=== PATIENT | female | born 1990 | race Caucasian/White ===

== ENCOUNTER 2020-11-25 17:33 | Emergency (ER) | payer SELFPAY ==
--- OUTSIDE RECORDS SUMMARY | 2020-11-25 17:36 | XMS REPORT | Continuity of Care Document ---
:1990 Author Organization [facility] t Address [address] [place] [address] Care Team Providers Name Role Phone Unavailable Unavailable Unavailable Problems Condition Condition Condition Status Onset Resolution Last Treating Co mments Source Name Details Category Date Date Treatment Clinician Date Hypothyroi Hypothyroi Problem Active 0 [facility] dism dism 01-15 da 00:00: Medical 00 Group Polycystic Polycystic Problem Active 0 [facility] ovaries Ovaries 01-15 da 00:00: Medical 00 Group Allergies, Adverse Reactions, Alerts Allergy Allergy Status Severity Reaction(s) Onset Inactive Treating Comm ents Source Name Type Date Date Clinician PENICILL Allergy Active [place] INS to da [facility] e Group Social History Smoking Status Start Date Stop Date Source Never Smoker [facility] Medications Ordered Filled Start Stop Current Ordering Indication Dosage Frequency Signature Comments Components Source Medication Medication Date Date Medication? Clinician (SIG) Name Name Euthyrox 50 Euthyrox 50 No Euthyrox [facility] mcg tablet mcg tablet 50 mcg d a TAKE 1 TAKE 1 tablet Medical TABLET BY TABLET BY TAKE 1 Maira up MOUTH ONCE MOUTH ONCE TABLET BY DAILY DAILY MOUTH ONCE DAILY Vital Signs Vital Name Observation Time Observation Value Comments Source BP Diastolic 2020-11-05 00:00:00 94 mm[Hg] [facility] Height 2020-11-05 00:00:00 67 [in_i] [facility] BMI (Body Mass 2020-11-05 00:00:00 36.3 kg/m2 [facility] BP Systolic 2020-11-05 00:00:00 147 mm[Hg] [facility] Body Weight 2020-11-05 00:00:00 232 [lb_av] [facility] BP Diastolic 2019-01-22 00:00:00 83 mm[Hg] [facility] Height 2019-01-22 00:00:00 67 [in_i] [facility] BMI (Body Mass 2019-01-22 00:00:00 33.4 [facility]2 [facility] BP Systolic 2019-01-22 00:00:00 120 mm[Hg] [facility] Body Weight 2019-01-22 00:00:00 213 [lb_av] [facility] BP Diastolic 2019-01-15 00:00:00 91 mm[Hg] [facility] Height 2019-01-15 00:00:00 67 [in_i] [facility] BMI (Body Mass 2019-01-15 00:00:00 33.5 kg/m2 [facility] Medical Index) Group BP Systolic 2019-01-15 00:00:00 149 mm[Hg] [facility] Body Weight 2019-01-15 00:00:00 214 [lb_av] [facility] Procedures Procedure Date / Time Performed Performing Clinician Sourc e MAMMO, screening, 2019-01-15 00:00:00 [facility] Plan of Care Planned Activity Planned Date Details Comments Source Diagnostic Test 2020-11-05 testosterone, [facility] Pending 00:00:00 total, serum [code Group = testosterone, total, serum] Diagnostic Test 2020-11-05 estradiol, serum [facility] Pending 00:00:00 [code = estradiol, Group serum] Diagnostic Test 2020-11-05 17-hydroxyprogeste [facility] Pending 00:00:00 chava, QN, serum Group [code = 17-hydroxyprogeste chava, QN, serum] Diagnostic Test 2020-11-05 T4, free, serum [facility] Pending 00:00:00 [code = T4, free, Group serum] Diagnostic Test 2020-11-05 lh + FSH, serum [facility] Pending 00:00:00 [code = lh + FSH, Group serum] Diagnostic Test 2020-11-05 progesterone, [facility] Pending 00:00:00 serum [code = Group progesterone, serum] Diagnostic Test 2020-11-05 prolactin, serum [facility] Pending 00:00:00 [code = prolactin, Group serum] Diagnostic Test 2020-11-05 TSH, serum or [facility] Pending 00:00:00 plasma [code = Group TSH, serum or plasma] Future Appointment 2020-12-06 Wu Patel 15:15:[address] [place] [address]; , [place] [address] Encounters Start End Encounter Admission Attending Care Care Encounter Source Date/Time Date/Time Type Type Clinicians Facility Department ID 2020-11-05 2020-11-05 Sherly [facility] [place] - [id number] M [facility] 00:00:00 00:00:00 [facility] MD: [address] [place] [address], [place] [address] , Ph. [phone] 2019-01-22 2019-01-22 Sherly [facility] [place] - [id number] M [facility] 00:00:00 00:00:00 [facility] MD: [address] [place] [address], [place] [address] , Ph. [phone] 2019-01-15 2019-01-15 Sherly [facility] [place] - [id number] M [facility] 00:00:00 00:00:00 [facility] cornelius MD: [address] [place] [address], [place] [address] , Ph. [phone] Results Test Description Test Time Test Comments Results Result Comments Source Human papilloma virus genotype [Identifier] in Unspecified 2 00:00:00 specimen by Probe and target amplification method Test Item Value Reference Range Interpretation Comme nts HPV type-detect 3.0 by next gen sequencing (reflex to HPV-16 ris k not detected assessment status) (test code = HPV type-detect 3.0 by next gen sequencing (reflex to HPV-16 risk assessment status)) [facility] [Identifier] in Unspecified specimen by Probe and target amplification [id number] 00:00:00 Test Item Value Reference Range Interpretation Comments HPV type-detect 3.0 by next gen not detected sequencing (reflex to HPV-16 risk assessment status) (test code = HPV type-detect 3.0 by next gen sequencing (reflex to HPV-16 risk assessment status)) [facility] HR HPV if [id number] 00:00:00 Test Item Value Reference Range Interpretation Comments liquid Pap test with reflex to HPV abnormal A type-detect 3.0 if ASCUS or greater (test code = liquid Pap test with reflex to HPV type-detect 3.0 if ASCUS or greater) [facility] + reflex to HR HPV if [id number] 00:00:00 Test Item Value Reference Range Interpretation Comments liquid Pap test with reflex to HPV abnormal A type-detect 3.0 if ASCUS or greater (test code = liquid Pap test with reflex to HPV type-detect 3.0 if ASCUS or greater) [facility]
[2020-11-25 18:30] LABS: Urine Blood 2+ (Negative); Urine Glucose Negative (Negative); Urine Protein Negative (Negative); Urine Specific Gravity 1.025 (1.005-1.030)
[2020-11-25 18:34] LABS: Absolute Lymphocytes (CBC) 2.2 K/uL (0.7-4.9); Basophils % 0.3 % (0-1.3); Hematocrit 38.1 % (36.0-45.0); Lymphocytes % 25.9 % (15.3-44.8); MPV 8.8 fL (7.6-11.3)
[2020-11-25 18:38] LABS: Urine Specific Gravity/Preg 1.025 (1.005-1.030)
[2020-11-25 19:13] LABS: Potassium 3.6 mmol/L (3.5-5.1)
--- NOTE | 2020-11-25 20:23 | EDPHYS ---
Physician Documentation [facility] Name: Tawanna Charles Age: 30 yrs Sex: Female : 1990 Arrival Date: 11/25/2020 Time: 17:34 Bed 2 Private MD: RISHI Physician Sandeep Osuna HPI: 11/26 00:10 This 30 yrs old Female presents to ER via Ambulatory with complaints of kb Vaginal Bleeding, Fatigue, Dizziness. 00:10 The patient presents with vaginal bleeding that is moderate. Onset: The kb symptoms/episode began/occurred 6 day(s) ago. Modifying factors: The symptoms are alleviated by nothing, the symptoms are aggravated by nothing. Associated signs and symptoms: Pertinent positives: vaginal bleeding, Pertinent negatives: constipation, cramping, diarrhea, dyspareunia, dysuria, fever, hematuria, nausea, urinary frequency, vaginal discharge, vomiting. Severity of symptoms: At their worst the symptoms were moderate, in the emergency department the symptoms are unchanged. The patient has experienced similar episodes in the past, a few times. The patient has been recently seen by a physician:. Patient reports recent change in control for PCOS. Has had vaginal bleeding for 6 days. Today had dizziness and fatigue, called boat and plant utility supervisor to report symptoms to ask for earlier follow-up date and was told to come to the ER.. Historical: - Allergies: 11/25 17:46 No Known Allergies; hb - Immunization history:: Adult Immunizations up to date. - Social history:: Smoking status: Patient denies any tobacco usage or history of. ROS: 11/26 00:10 Positive for vaginal bleeding. kb Constitutional: Negative for fever, chills, and weight loss. Constitutional: Positive for fatigue. Neuro: Positive for dizziness. All other systems are negative. Exam: 00:10 Constitutional: This is a well developed, well nourished patient who is awake, alert, kb and in no acute distress. Head/Face: Normocephalic, atraumatic. ENT: Moist Mucous membranes Respiratory: Respirations even and unlabored. No increased work of breathing, no retractions or nasal flaring. Abdomen/GI: Soft, non-tender. No distention Skin: Warm, dry with normal turgor. Normal color. MS/ Extremity: Pulses equal, no cyanosis. Neurovascular intact. Full, normal range of motion. Neuro: Awake and alert, GCS 15, oriented to person, place, time, and situation. Moves all extremities. Normal gait. Psych: Awake, alert, with orientation to person, place and time. Behavior, mood, and affect are within normal limits. Vital Signs: 11/25 17:43 BP 168 / 98; Pulse 65; Resp 16; Temp 99.2; Pulse Ox 98% on R/A; Pain 3/10; hb 20:12 BP 133 / 83 Supine; Pulse 86; Pulse Ox 98% ; ds4 20:15 BP 130 / 90 Sitting; Pulse 90; Pulse Ox 98% ; ds4 20:18 BP 140 / 106 Standing; Pulse 96; Pulse Ox 98% ; ds4 20:39 BP 128 / 91; Pulse 80; Resp 18; Temp 98.3; Pulse Ox 100% on R/A; em MDM: 17:46 Patient medically screened. kb 11/26 00:09 Data reviewed: vital signs, nurses notes. Data interpreted: Pulse oximetry: on room air kb is 100 %. Interpretation: normal. Counseling: I had a detailed discussion with the patient and/or guardian regarding: the historical points, exam findings, and any diagnostic results supporting the discharge/admit diagnosis, lab results, the need for outpatient follow up, an OB/Gyne specialist, to return to the emergency department if symptoms worsen or persist or if there are any questions or concerns that arise at home. 00:12 ED course: H\T\H normal. Patient will call boat and plant utility supervisor in the morning for follow-up. kb 11/25 17:47 Order name: CBC with Diff; Complete Time: 18:39 kb 11/25 17:47 Order name: Basic Metabolic Panel; Complete Time: 19:27 kb 11/25 17:47 Order name: IV Start; Complete Time: 18:01 kb 11/25 18:30 Order name: Urine Dipstick-Ancillary; Complete Time: 18:35 EDMS 11/25 18:31 Order name: Urine --Ancillary (enter results) em1 11/25 18:32 Order name: Urine --Ancillary; Complete Time: 18:39 EDMS 11/25 17:47 Order name: Orthostatics; Complete Time: 20:19 kb 11/25 17:47 Order name: Urine Dipstick-Ancillary (obtain specimen); Complete Time: 18:29 kb Administered Medications: No medications were administered Disposition: 09:08 Co-signature as Attending Physician, Sandeep Osuna MD I agree with the assessment and andrea plan of care. Disposition Summary: 11/25/20 20:22 Discharge Ordered Location: Home kb Condition: Stable kb Diagnosis - Abnormal uterine and vaginal bleeding, unspecified kb Followup: kb - With: Emergency Department - When: As needed - Reason: Worsening of condition Followup: kb - With: Private Physician - When: 2 - 3 days - Reason: Recheck today's complaints, Continuance of care, Re-evaluation by your physician Discharge Instructions: - Discharge Summary Sheet kb - Abnormal Uterine Bleeding, [id number] kb Forms: - Medication Reconciliation Form kb - Thank You Letter kb - Antibiotic Education kb - Prescription Opioid Use kb Signatures: Dispatcher [employer] EDMS Tawanna Lombardi, PINION SORTER-C PINION SORTER-Sandeep Nathan MD MD cha Baxter, Heather, RN RN
--- NOTE | 2020-11-25 20:23 | ER ---
Nurse's Notes [facility] Name: Tawanna Charles Age: 30 yrs Sex: Female : 1990 Arrival Date: 11/25/2020 Time: 17:34 Bed 2 Private MD: Diagnosis: Abnormal uterine and vaginal bleeding, unspecified Presentation: 11/25 17:43 Chief complaint: Severe vaginal bleeding, abdominal pain, fatigue, and dizziness x 6 hb days. Reports recent PCOS medication change. Coronavirus screen: At this time, the client does not indicate any symptoms associated with coronavirus-19. Ebola Screen: No symptoms or risks identified at this time. Initial Sepsis Screen: Does the patient meet any 2 criteria? No. Patient's initial sepsis screen is negative. Does the patient have a suspected source of infection? No. Patient's initial sepsis screen is negative. Risk Assessment: Do you want to hurt yourself or someone else? Patient reports no desire to harm self or others. Onset of symptoms was November 20, 2020. 17:43 Method Of Arrival: Ambulatory hb 17:43 Acuity: XU 3 hb Historical: - Allergies: 17:46 No Known Allergies; hb - Immunization history:: Adult Immunizations up to date. - Social history:: Smoking status: Patient denies any tobacco usage or history of. Screenin:35 Abuse screen: Denies threats or abuse. Nutritional screening: No deficits noted. em Tuberculosis screening: No symptoms or risk factors identified. Fall Risk None identified. Assessment: 20:30 General: Appears in no apparent distress. comfortable, Behavior is calm, cooperative, em appropriate for age. Pain: Complains of pain in abdomen. Neuro: Level of Consciousness is awake, alert, obeys commands, Oriented to person, place, time, situation, Reports dizziness. Cardiovascular: Capillary refill < 3 seconds Patient's skin is warm and dry. Respiratory: Airway is patent Respiratory effort is even, unlabored, Respiratory pattern is regular, symmetrical. GI: Abdomen is round obese. : Reports vaginal bleeding that is. Derm: Skin is intact, is healthy with good turgor, Skin is pink, warm \T\ dry. Musculoskeletal: Capillary refill < 3 seconds, Range of motion: intact in all extremities. 20:44 Reassessment: Patient and/or family updated on plan of care and expected duration. Pain ea level reassessed. Patient is alert, oriented x 3, equal unlabored respirations, skin warm/dry/pink. Discharge instruction given to patient verbalized the understanding of instruction. Pt left ED ambulatory accompanied by family, pt tolerating well. Vital Signs: 17:43 BP 168 / 98; Pulse 65; Resp 16; Temp 99.2; Pulse Ox 98% on R/A; Pain 3/10; hb 20:12 BP 133 / 83 Supine; Pulse 86; Pulse Ox 98% ; ds4 20:15 BP 130 / 90 Sitting; Pulse 90; Pulse Ox 98% ; ds4 20:18 BP 140 / 106 Standing; Pulse 96; Pulse Ox 98% ; ds4 20:39 BP 128 / 91; Pulse 80; Resp 18; Temp 98.3; Pulse Ox 100% on R/A; em ED Course: 17:34 Patient arrived in ED. ds1 17:46 Triage completed. hb 17:46 Tawanna Lombardi FNP-C is [facility]. kb 17:46 Sandeep Osuna MD is Attending Physician. kb 17:46 Arm band placed on. hb 17:56 Inserted saline lock: 22 gauge in left antecubital area, using aseptic technique. Blood hb collected. 18:01 Basic Metabolic Panel Sent. hb 18:01 CBC with Diff Sent. hb 20:17 Kasey Cade, RN is Primary Nurse. ea 20:35 Patient has correct armband on for positive identification. em 20:41 No provider procedures requiring assistance completed. IV discontinued, intact, em bleeding controlled, No redness/swelling at site. Pressure dressing applied. Administered Medications: No medications were administered Outcome: 20:22 Discharge ordered by MD. kb 20:41 Discharged to home ambulatory, with family. em 20:41 Condition: stable 20:41 Discharge instructions given to patient, Instructed on discharge instructions, follow up and referral plans. Demonstrated understanding of instructions, follow-up care. 20:45 Patient left the ED. ea Signatures: Tawanna Lombardi FNP-C FNP-Ckb Munoz, Edgar, RN RN em Chary Tran ds1 Abdi Granger ds4 Leana Morelos RN RN hb Antunez, Elena, RN RN ea Corrections: (The following items were deleted from the chart) 17:46 17:43 Pulse 65bpm; Resp 16bpm; Pulse Ox 98% RA; Temp 99.2F; Pain 3/10; hb hb
[2020-11-25 21:25] VITALS: BP 128/91; TEMP 98.3; O2SAT 100
== END 2020-11-25 20:45 | disposition home or self-care (01) ==
LOC: ER 17:33
DX: N93.9 Abnormal uterine and vaginal bleeding, unspecified (principal)
CPT/HCPCS: 36415; 80048; 81003; 81025; 85025; 99283

== ENCOUNTER 2022-07-06 18:36 | Emergency (ER) | payer SELFPAY ==
--- OUTSIDE RECORDS SUMMARY | 2022-07-06 18:38 | XMS REPORT | Continuity of Care Document ---
:[address] [facility] t Address [address] [place] [address] Care Team Providers Name Role Phone Linette Attending Clinician Unavailable Windy Attending Clinician Unavailable gricel Attending Clinician Unavailable Manuela_Adryan Admitting Clinician Unavailable Windy Admitting Clinician Unavailable gricel Admitting Clinician Unavailable Payers Payer Name Policy Type Policy Number Effective Date Expiration Date S ource Problems Condition Condition Condition Status Onset Resolution [...] PENICILL Allergy Active [facility] to [facility] Medical e Group Social History Smoking Status Start Date Stop Date Source Never Smoker [facility] Medications Ordered Filled Start [...] Source BP Diastolic 2020-11-05 00:00:00 94 mm[Hg] [facility] Height 2020-11-05 00:00:00 67 [in_i] [facility] BMI (Body Mass 2020-11-05 00:00:00 36.3 kg/m2 [facility] BP Systolic 2020-11-05 00:00:00 147 mm[Hg] [facility] Body Weight 2020-11-05 00:00:00 232 [lb_av] [facility] BP Diastolic 2019-01-22 00:00:00 83 mm[Hg] [facility] Height 2019-01-22 00:00:00 67 [in_i] [facility] BMI (Body Mass 2019-01-22 00:00:00 33.4 kg/m2 [facility] geological aide Medical Index) Group BP Systolic 2019-01-22 00:00:00 120 mm[Hg] [facility] Body Weight 2019-01-22 00:00:00 213 [lb_av] [facility] BP Diastolic 2019-01-15 00:00:00 91 mm[Hg] [facility] Height 2019-01-15 00:00:00 67 [in_i] [facility] BMI (Body Mass 2019-01-15 00:00:00 33.5 kg/m2 [facility] Medical Index) Group BP Systolic 2019-01-15 00:00:00 149 mm[Hg] [facility] Body Weight 2019-01-15 00:00:00 214 [lb_av] [facility] Procedures Procedure Date / Time Performed Performing Clinician Sourc e MAMMO, screening, 2019-01-15 00:00:00 [facility] Plan of Care Planned Activity Planned Date Details Comments Source Diagnostic Test 2020-11-05 testosterone, [facility] Pending 00:00:00 total, serum [code Group = testosterone, total, serum] Diagnostic Test 2020-11-05 estradiol, [facility] Pending 00:00:00 [code = estradiol, Group serum] Diagnostic Test 2020-11-05 [facility]e [facility] Pending 00:00:00 chava, QN, serum Group [code = 17-hydroxyprogeste chava, QN, serum] Diagnostic Test 2020-11-05 T4, free, serum [facility] Pending 00:00:00 [code = T4, free, Group serum] Diagnostic Test 2020-11-05 lh + FSH, serum [facility] Pending 00:00:00 [code = lh + FSH, Group serum] Diagnostic Test 2020-11-05 progesterone, [facility] Pending 00:00:00 serum [code = Group progesterone, serum] Diagnostic Test 2020-11-05 prolactin, serum [facility] Pending 00:00:00 [code = prolactin, Group serum] Diagnostic Test 2020-11-05 TSH, serum or [facility] Pending 00:00:00 plasma [code = Group TSH, serum or plasma] Encounters Start End Encounter Admission Attending Care Care Encounter Source Date/Time Date/Time Type Type Clinicians Facility Department ID 2021-02-22 2021-02-22 Outpatient Rut[facility]_L [id number] [facility] 02:43:00 02:43:00 [facility] 2020-11-26 2020-11-26 Outpatient [id number] [facility] 10:34:00 10:34:00 07[facility] 2020-11-22 2020-11-22 Outpatient [facility]L [facility] [id number] [place] 05:59:00 05:59:00 0719 [facility] 2020-11-05 2020-11-05 Outpatient [facility]L [facility] [id number] [facility] 12:44:00 12:44:00 0702 [facility] 2020-11-05 2020-11-05 Sherly [facility] [place] - [id number] M [facility] 00:00:00 00:00:00 Kamar Castro, Medical Med[facility] adryan VALERIO: [address] [facility] [address], [place] [address] , Ph. [phone] 2020-03-30 2020-03-30 Outpatient [facility]_L [facility] [id number] [place] 11:03:00 11:03:00 1124 [facility] 2020-03-24 2020-03-24 Outpatient [facility]_L [facility] [id number] [place] 02:28:00 02:28:00 1118 [facility] 2019-12-23 2019-12-23 Outpatient Windy [facility] MMG [id number] [facility] 04:23:00 04:23:00 0818 [facility] 2019-08-14 2019-08-14 Outpatient janetteastian_k [facility] [id number] [place] 09:51:00 09:51:00 0409 [facility] 2019-01-22 2019-01-22 Sherly [place] - [id number] M [facility] 00:00:00 00:00:00 Kamar Castro [facility] adryan MD: [address] [facility] [address] [place] [address] , Ph. [phone] 2019-01-15 2019-01-15 Sherly [facility] [place] - [id number] M [facility] 00:00:00 00:00:00 Kamar Castro [facility] ad[facility] MD: [address] [facility] [address] [place] [address] , Ph. [phone] Results Test Description Test Time Test Comments [...] sequencing (reflex to HPV-16 risk assessment status)) [facility] [Identifier] in Unspecified specimen by Probe and target amplification [id number] 00:00:00 Test Item Value Reference Range Interpretation Comments HPV type-detect 3.0 by next gen not detected sequencing (reflex to HPV-16 risk assessment status) (test code = HPV type-detect 3.0 by next gen sequencing (reflex to HPV-16 risk assessment status)) [facility] + reflex to HR HPV if [id number] 00:00:00 Test Item Value Reference Range Interpretation Comments liquid Pap test with reflex to HPV abnormal A type-detect 3.0 if ASCUS or greater (test code = liquid Pap test with reflex to HPV type-detect 3.0 if ASCUS or greater) [facility], LB + reflex to HR HPV if [id number] 00:00:00 Test Item Value Reference Range Interpretation Comments liquid Pap test with reflex to HPV abnormal A type-detect 3.0 if ASCUS or greater (test code = liquid Pap test with reflex to HPV type-detect 3.0 if ASCUS or greater) [facility]
[2022-07-06] MEDS ORDERED: NA CHLORIDE 0.9% 1,000 ML ONE (21:46)
[2022-07-06 22:08] LABS: Urine Blood Negative (Negative); Urine Glucose Negative (Negative); Urine Protein Negative (Negative)
[2022-07-06 22:10] LABS: Hematocrit 40.8 % (36.0-45.0); Lymphocytes % 31.3 % (15.3-44.8); MCV 85.1 fL (80-100); MPV 8.7 fL (7.6-11.3); RBC Red Blood Cell Count 4.79 M/uL (3.86-4.86)
[2022-07-06 22:22] LABS: Urine Bacteria <20 /HPF (<20); Urine Mucus Slight /HPF (None Seen); Urine RBC <5 /HPF (None Seen)
[2022-07-06 22:29] LABS: Albumin 4.1 g/dL (3.4-5.0); Bilirubin Total 0.4 mg/dL (0.2-1.0); Potassium 3.3 mmol/L (3.5-5.1); Protein, Total 8.4 g/dL (6.4-8.2)
--- NOTE | 2022-07-06 22:49 | EDPHYS ---
Physician Documentation [facility] Name: Tawanna Charles Age: 31 yrs Sex: Female : 1990 Arrival Date: 07/06/2022 Time: 18:40 Bed 11 Private MD: ED Physician Demario Cochran HPI: 07/06 22:50 This 31 yrs old Female presents to ER via Ambulatory with complaints of Urinary Problem.rt 22:50 Patient presents to the ED with urinary frequency, abdominal pain as well as a back rt pain starting about 6 days ago. Patient developed which describes as tachycardia today prompting him to the ED for further evaluation. She denies other acute complaints at this time. Symptoms are mild in severity, nonradiating, no other aggravating or elevating factors.. 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 - Social history:: Smoking status: Patient denies any tobacco usage or history of. Patient uses alcohol, only on a social basis. - Family history:: not pertinent. ROS: 22:50 Constitutional: Negative for fever, chills, and weight loss, Cardiovascular: Negative rt for chest pain, palpitations, and edema, Respiratory: Negative for shortness of breath, cough, wheezing, and pleuritic chest pain, Skin: Negative for injury, rash, and discoloration, Neuro: Negative for headache, weakness, numbness, tingling, and seizure, Psych: Negative for depression, anxiety, suicide ideation, homicidal ideation, and hallucinations. 22:50 Back: Positive for pain at rest, Negative for injury or acute deformity. 22:50 : Positive for urinary frequency, Negative for difficulty urinating. Exam: 22:50 Constitutional: This is a well developed, well nourished patient who is awake, alert, rt and in no acute distress. Neck: Trachea midline, no thyromegaly or masses palpated, and no cervical lymphadenopathy. Supple, full range of motion without nuchal rigidity, or vertebral point tenderness. No Meningismus. Chest/axilla: Normal chest wall appearance and motion. Nontender with no deformity. No lesions are appreciated. Cardiovascular: Regular rate and rhythm with a normal S1 and S2. No gallops, murmurs, or rubs. Normal PMI, no JVD. No pulse deficits. Respiratory: Lungs have equal breath sounds bilaterally, clear to auscultation and percussion. No rales, rhonchi or wheezes noted. No increased work of breathing, no retractions or nasal flaring. Abdomen/GI: Soft, non-tender, with normal bowel sounds. No distension or tympany. No guarding or rebound. No evidence of tenderness throughout. Back: No spinal tenderness. No costovertebral tenderness. Full range of motion. MS/ Extremity: Pulses equal, no cyanosis. Neurovascular intact. Full, normal range of motion. Neuro: Awake and alert, GCS 15, oriented to person, place, time, and situation. Cranial nerves II-XII grossly intact. Motor strength 5/5 in all extremities. Sensory grossly intact. Cerebellar exam normal. Normal gait. Psych: Awake, alert, with orientation to person, place and time. Behavior, mood, and affect are within normal limits. Vital Signs: 21:00 BP 154 / 100; Pulse 94; Resp 18; Temp 98.8(O); Pulse Ox 100% on R/A; Weight 110.22 kg; eh3 Height 5 ft. 7 in. (170.18 cm); Pain 5/10; 22:00 BP 188 / 119; Pulse 93; Resp 18; Pulse Ox 100% on R/A; eh3 23:00 BP 153 / 105; Pulse 96; Resp 18; Pulse Ox 99% on R/A; eh3 21:00 Body Mass Index 38.06 (110.22 kg, 170.18 cm) [facility] MDM: 20:02 Patient medically screened. rt 22:50 Differential diagnosis: Kidney stone, pyelonephritis, UTI, mechanical back pain. Data rt reviewed: vital signs, nurses notes, lab test result(s). Test considered but Not performed: CT: No focal abdominal tenderness, benign abdominal examination with no lab abnormalities, CT scan not indicated.. Counseling: I had a detailed discussion with the patient and/or guardian regarding: the historical points, exam findings, and any diagnostic results supporting the discharge/admit diagnosis, the presence of at least one elevated blood pressure reading (>120/80) during this emergency department visit, lab results, the need for outpatient follow up. 07/06 20:09 Order name: CBC with Diff rt 07/06 20:09 Order name: CMP rt 07/06 20:09 Order name: Lactate w/ 2H reflex if indic. rt 07/06 20:09 Order name: Urine Dipstick-Ancillary (obtain specimen); Complete Time: 22:14 rt 07/06 20:09 Order name: Urine Microscopic Only rt 07/06 20:10 Order name: Urine Culture rt 07/06 22:08 Order name: Urine Dipstick-Ancillary; Complete Time: 22:10 EDMS 07/06 22:13 Order name: Urine --Ancillary (enter results) wm 07/06 22:13 Order name: CBC with Automated Diff; Complete Time: 22:26 EDMS 07/06 22:22 Order name: Urine Microscopic Only; Complete Time: 22:26 EDMS 07/06 22:29 Order name: Comprehensive Metabolic Panel; Complete Time: 22:42 EDMS 07/06 22:29 Order name: Lactate w/ 2H reflex if indic.; Complete Time: 22:42 EDMS 07/06 23:02 Order name: Urine --Ancillary EDMS Administered Medications: 22:14 Drug: NS 0.9% 1000 ml Route: IV; Rate: 1 bolus; Site: right antecubital; eh3 23:00 Follow up: IV Status: Completed infusion; IV Intake: 900ml [facility] Disposition Summary: 07/06/22 22:49 Discharge Ordered Location: Home rt Problem: new rt Symptoms: have improved rt Condition: Stable rt Diagnosis - Frequency of micturition rt - Low back pain rt Followup: rt - With: Private Physician - When: 2 - 3 days - Reason: Discharge Instructions: - Discharge Summary Sheet rt - Acute Back Pain, Adult rt - Urinary Frequency, Adult rt Forms: - Medication Reconciliation Form rt - Thank You Letter rt - Antibiotic Education rt - Prescription Opioid Use rt Signatures: Dispatcher [employer] EDMS Nanci Mora RN RN 3 Demario Cochran MD MD rt Corrections: (The following items were deleted from the chart) 22:17 22:15 PSHx: Hysterectomy; eh3 eh3
--- NOTE | 2022-07-06 22:49 | ER ---
Nurse's Notes [facility] Name: Tawanna Charles Age: 31 yrs Sex: Female : 1990 Arrival Date: 07/06/2022 Time: 18:40 Bed 11 Private MD: Diagnosis: Frequency of micturition;Low back pain Presentation: 07/06 21:00 Chief complaint: Patient states: abdominal pain started 6 days ago, then back pain and eh3 dizziness last night, then increased heart rate, diarrhea, urinary frequency and urgency today. Also states it feels like bladder is not completely empty after voiding. Coronavirus screen: Vaccine status: Patient reports being unvaccinated. Ebola Screen: No symptoms or risks identified at this time. Initial Sepsis Screen: Does the patient meet any 2 criteria? No. Patient's initial sepsis screen is negative. Does the patient have a suspected source of infection? Yes: Dysuria/Frequency/Urgency/UTI. Risk Assessment: Do you want to hurt yourself or someone else? Patient reports no desire to harm self or others. Onset of symptoms was June 30, 2022. 21:00 Method Of Arrival: Ambulatory 3 21:00 Acuity: XU 3 eh3 Triage Assessment: 21:00 General: Appears in no apparent distress. comfortable, Behavior is calm, cooperative, eh3 appropriate for age. Pain: Complains of pain in back and abdomen. EENT: No signs and/or symptoms were reported regarding the EENT system. Neuro: Level of Consciousness is awake, alert, obeys commands, Oriented to person, place, time, situation. Neuro: Reports dizziness, headache. Cardiovascular: Capillary refill < 3 seconds Patient's skin is warm and dry. Cardiovascular: Reports palpitations. Respiratory: Airway is patent Respiratory effort is even, unlabored, Respiratory pattern is regular, symmetrical. GI: Abdomen is round non-distended, Reports lower abdominal pain, diarrhea. : Urine is clear, Reports urgency, urinary frequency. Derm: Skin is pink, warm \T\ dry. Musculoskeletal: Circulation, motion, and sensation intact. Range of motion: intact in all extremities. 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 - Social history:: Smoking status: Patient denies any tobacco usage or history of. Patient uses alcohol, only on a social basis. - Family history:: not pertinent. Screenin:19 [facility] ED Fall Risk Assessment (Adult) Score/Fall Risk Level 0 - 2 = Low Risk. Abuse eh3 screen: Denies threats or abuse. Denies injuries from another. Nutritional screening: No deficits noted. Tuberculosis screening: No symptoms or risk factors identified. Assessment: 21:00 Reassessment: No changes from previously documented assessment. See triage assessment. 3 22:00 Reassessment: Patient appears in no apparent distress at this time. Patient and/or 3 family updated on plan of care and expected duration. Pain level reassessed. Patient is alert, oriented x 3, equal unlabored respirations, skin warm/dry/pink. 23:00 Reassessment: Patient appears in no apparent distress at this time. Patient and/or 3 family updated on plan of care and expected duration. Pain level reassessed. Patient is alert, oriented x 3, equal unlabored respirations, skin warm/dry/pink. Vital Signs: 21:00 BP 154 / 100; Pulse 94; Resp 18; Temp 98.8(O); Pulse Ox 100% on R/A; Weight 110.22 kg; 3 Height 5 ft. 7 in. (170.18 cm); Pain 5/10; 22:00 BP 188 / 119; Pulse 93; Resp 18; Pulse Ox 100% on R/A; 3 23:00 BP 153 / 105; Pulse 96; Resp 18; Pulse Ox 99% on R/A; 3 21:00 Body Mass Index 38.06 (110.22 kg, 170.18 cm) [facility] ED Course: 18:40 Patient arrived in ED. mr 19:30 Demario Cochran MD is Attending Physician. rt 21:00 Patient has correct armband on for positive identification. Bed in low position. Call [facility] light in reach. Side rails up X2. Arm band placed on. Pulse ox on. NIBP on. Door closed. Noise minimized. Lights dimmed. Warm blanket given. Pillow given. 21:10 Nanci Mora, RN is Primary Nurse. [facility] 22:11 Triage completed. 3 22:19 Inserted saline lock: 20 gauge in right antecubital area, using aseptic technique. 3 Blood collected. 23:03 No provider procedures requiring assistance completed. IV discontinued, intact, 3 bleeding controlled, No redness/swelling at site. Pressure dressing applied. Administered Medications: 22:14 Drug: NS 0.9% 1000 ml Route: IV; Rate: 1 bolus; Site: right antecubital; [facility] 23:00 Follow up: IV Status: Completed infusion; IV Intake: 900ml [facility] Medication: 23:03 VIS not applicable for this client. [facility] Intake: 23:00 IV: 900ml; Total: 900ml. [facility] Outcome: 22:49 Discharge ordered by MD. rt 23:03 Discharged to home ambulatory. [facility] 23:03 Condition: stable 23:03 Discharge instructions given to patient, Instructed on discharge instructions, follow up and referral plans. Demonstrated understanding of instructions, follow-up care. 23:04 Patient left the ED. [facility] Signatures: Holder Makeda prather Nanci Mora RN RN [facility] Demario Cochran MD MD rt Corrections: (The following items were deleted from the chart) 22:17 22:15 PSHx: Hysterectomy; [place] [id number] 07/07 00:00 0302 22:08 Chief complaint: Patient states: abdominal pain started 6 days ago, then 3 back pain and dizziness last night, then increased heart rate, diarrhea, urinary frequency and urgency today. Also states it feels like bladder is not completely empty after voiding [facility] 07/07 00:02 0302 22:08 Coronavirus screen: Vaccine status: Patient reports being unvaccinated. [place] [address] 07/07 00: 03 22:08 Ebola Screen: No symptoms or risks identified at this time. [place] [address] 07/07 00:02 0302 22:08 Initial Sepsis Screen: Does the patient meet any 2 criteria? No. Patient's [facility] initial sepsis screen is negative. Does the patient have a suspected source of infection? Yes: Dysuria/Frequency/Urgency/UTI [facility] 07/07 00:02 0302 22:08 Risk Assessment: Do you want to hurt yourself or someone else? Patient [facility] reports no desire to harm self or others. [facility] 07/08 99:07/06 22:08 Onset of symptoms was July 06, 2022 [place] [address] 07/08 99:07/06 22:08 Chief complaint: Patient states: abdominal pain started 6 days ago, then [facility] back pain and dizziness last night, then increased heart rate, diarrhea, urinary frequency and urgency today. Also states it feels like bladder is not completely empty after voiding [facility] 07/08 99:07/06 22:08 Method Of Arrival: Ambulatory [place] [address] 07/08 99:07/06 22:08 BP 154 / 100; Pulse 94bpm; Resp 18bpm; Pulse Ox 100% RA; Temp 98.8F Oral; 3 110.22 kg; Height 5 ft. 7 in.; BMI: 38.0; Pain 5/10; [facility] 07/08 99:07/06 22:08 Acuity: XU 3 [place] [address] 07/08 99:07/06 22:15 General: Appears in no apparent distress. comfortable, Behavior is calm, [facility] cooperative, appropriate for age, [facility] 07/08 99:07/06 22:15 Pain: Complains of pain in back and abdomen [place] [address] 07/08 99:07/06 22:15 EENT: No signs and/or symptoms were reported regarding the EENT system. [place] [address] 07/08 99:07/06 22:15 Neuro: Level of Consciousness is awake, alert, obeys commands, Oriented to [facility] person, place, time, situation, [facility] 07/08 99:07/06 22:15 Cardiovascular: Capillary refill < 3 seconds Patient's skin is warm and [facility] dry. [facility] 07/08 99:07/06 22:15 Respiratory: Airway is patent Respiratory effort is even, unlabored, [facility] Respiratory pattern is regular, symmetrical, [facility] 07/08 99:07/06 22:15 GI: Abdomen is round non-distended, Reports lower abdominal pain, diarrhea, [place] [address] 07/08 99:07/06 22:15 : Urine is clear, Reports urgency, urinary frequency, [place] [address] 07/08 99:07/06 22:15 Cardiovascular: Reports palpitations, [place] [address] 07/07 00:03 03 22:15 Neuro: Reports dizziness, headache [place] [address] 07/07 00:03 07/06 22:15 Derm: Skin is pink, warm \T\ dry. [place] [address] 07/07 00:03 03 22:15 Musculoskeletal: Circulation, motion, and sensation intact. Range of [facility] motion: intact in all extremities, [facility] 07/07 00:07/06 23:30 IV Status: Completed infusion; IV Intake: 900ml [place] [address] 07/07 00:06 07/06 22:19 Reassessment: No changes from previously documented assessment. See triage [facility] assessment [facility] 07/07 00:07 07/06 23:03 LMP N/A - Hysterectomy [place] [address] 07/07 00:08 03 22:19 Patient has correct armband on for positive identification. Bed in low eh3 position. Call light in reach. Side rails up X2. [facility] 07/07 00:08 07/06 22:19 Pulse ox on. NIBP on. [place] [address] 07/07 00:08 07/06 22:19 Door closed. Noise minimized. Lights dimmed. Warm blanket given. Pillow 3 given. [facility] 07/07 00:08 07/06 23:03 Arm band placed on [place] [id number]
[2022-07-07 00:22] VITALS: BP 154/100; TEMP 98.8; O2SAT 100
== END 2022-07-06 23:04 | disposition home or self-care (01) ==
LOC: ER 18:36
DX: M54.50 Low back pain, unspecified (principal); R35.0 Frequency of micturition
CPT/HCPCS: 36415; 80053; 81003; 81015; 81025; 83605; 85025; 87086; 87088; 96360; 99284; J7030

== ENCOUNTER 2022-12-18 01:16 | Emergency (ER) | payer OTHER ==
--- OUTSIDE RECORDS SUMMARY | 2022-12-18 01:19 | XMS REPORT | Continuity of Care Document ---
:1990 Author Organization [facility] Address [address] [place] [address] [place] [id number] Care Team Providers Name Role Phone Tomek_T Attending Clinician Unavailable Manuela_Millicent Attending Clinician Unavailable Windy Attending Clinician Unavailable [email or web address]_tika Attending Clinician Unavailable Tomek_T Admitting Clinician Unavailable Rutledge_L Admitting Clinician Unavailable Windy Admitting Clinician Unavailable [email or web address]_k Admitting Clinician Unavailable Payers Payer Name Policy Type Policy Number Effective Date Expiration Date S ource Problems Condition Condition Condition Status Onset Resolution Last Treating Co mments Source Name Details Category Date Date Treatment Clinician Date Hypothyroi Hypothyroi Problem Active 20190 [facility] dism dism 01-15 da 00:00: Medical 00 Group Polycystic Polycystic Problem Active 0 [facility] ovaries Ovaries 01-15 da 00:00: Medical 00 Group Allergies, Adverse Reactions, Alerts Allergy Allergy Status Severity Reaction(s) Onset Inactive Treating Comm ents Source Name Type Date Date Clinician PENICILL Allergy Active [facility] to [facility]stanc [facility] Social History Smoking Status Start Date Stop Date Source Never Smoker [facility] Medications Ordered Filled Start [...] TABLET BY DAILY DAILY MOUTH ONCE DAILY Davidng BobbyuRyng No EluRyng [facility] [facility] 0.12 0.12 0.12 da mg-0.015 mg-0.015 mg-0.015 Med ical mg/24 hr mg/24 hr mg/24 hr Maira up vaginal vaginal vaginal ring INSERT ring INSERT ring 1 VAGINAL 1 VAGINAL INSERT 1 RING EVERY RING EVERY VAGINAL MONTH BY MONTH BY RING EVERY VAGINAL VAGINAL MONTH BY ROUTE ROUTE VAGINAL DIRECTED BY DIRECTED BY ROUTE PRESCRIBER PRESCRIBER DIRECTED BY PRESCRIBER levothyroxi levothyroxi No 1 Q1D levothyrox [place] ne 50 mcg ne 50 mcg ine 50 mcg da tablet Take tablet Take tablet Medical 1 tablet 1 tablet Take 1 Group every day every day tablet by oral by oral every day route for route for by oral 90 days. 90 days. route for 90 days. lisinopril lisinopril No 1 Q1D lisinopril [facility] 10 mg 10 mg 10 mg da tablet Take tablet Take tablet Medical 1 tablet 1 tablet Take 1 Group every day every day tablet by oral by oral every day route for route for by oral 90 days. 90 days. route for 90 days. Vital Signs Vital Name Observation Time Observation Value Comments Source BP Diastolic 2022-10-16 00:00:00 100 mm[Hg] [facility] BP Systolic 2022-10-16 00:00:00 169 mm[Hg] [facility] Body Weight 2022-10-16 00:00:00 3858 [facility] Diastolic 2020-11-05 00:00:00 94 mm[Hg] [facility] Height 2020-11-05 00:00:00 67 [in_i] [facility] BMI (Body Mass 2020-11-05 00:00:00 36.3 kg/m2 [facility]) Group BP Systolic 2020-11-05 00:00:00 147 mm[Hg] [facility] Body Weight 2020-11-05 00:00:00 232 [lb_av] [facility] BP Diastolic 2019-01-22 00:00:00 83 mm[Hg] [facility] Height 2019-01-22 00:00:00 67 [in_i] [facility] BMI (Body Mass 2019-01-22 00:00:00 33.4 kg/m2 [facility]) Group BP Systolic 2019-01-22 00:00:00 120 mm[Hg] [facility] Body Weight 2019-01-22 00:00:00 213 [lb_av] [facility] BP Diastolic 2019-01-15 00:00:00 91 [facility]Hg[facility] Height 2019-01-15 00:00:00 67 [in_i] [facility] BMI (Body Mass 2019-01-15 00:00:00 33.5 kg/m2 [facility]) Group BP Systolic 2019-01-15 00:00:00 149 mm[Hg] [facility] Body Weight 2019-01-15 00:00:00 214 [lb_av] [facility] Procedures Procedure Date / Time Performed Performing Clinician Sourc e MAMMO, screening, 2019-01-15 00:00:00 [facility] Plan of Care Planned Activity Planned Date Details Comments Source Diagnostic Test 2022-10-16 CMP, serum or [facility] Pending 00:00:00 plasma [code = Group CMP, serum or plasma] Diagnostic Test 2022-10-16 TSH, serum, reflex [facility] Pending 00:00:00 free T4 [code = Group TSH, serum, reflex free T4] Encounters Start End Encounter Admission Attending Care Care Encounter Source Date/Time Date/Time Type Type Clinicians Facility Department ID 2022-10-16 2022-10-16 [place] [id number] [facility] 00:00:00 00:00:00 [facility] 2022-10-16 2022-10-16 [facility] [place] - [id number] [facility] 00:00:00 00:00:00 Armand Shelton MD: [facility] [address], [place] [address] , Ph. 2022-10-13 2022-10-13 Outpatient Tomek_T [facility] [id number] [facility] 00:00:00 00:00:00 [id number] [facility] 2021-02-22 2021-02-22 Outpatient Rutledge_L [facility]G [id number] [place] 02:43:00 02:43:00 1019 [facility] 2020-11-26 2020-11-26 Outpatient Rutledge_L [facility]G [id number] [place] 10:34:00 10:34:00 0723 [facility] 2020-11-22 2020-11-22 Outpatient Rutledge_L [facility]G [id number] [place] 05:59:00 05:59:00 0719 [facility] 2020-11-05 2020-11-05 Outpatient Rutledge_L [facility]G [id number] [place] 12:44:00 12:44:00 0702 [facility] 2020-11-05 2020-11-05 [facility] [place] - [id number] [facility] 00:00:00 00:00:00 Magda Soto Medicrowena cornelius MD: [address] [place] [id number] , Ph. [phone] 2020-03-30 2020-03-30 Outpatient Rutledge_L [facility]G [id number] [place] 11:03:00 11:03:00 1124 [facility] 2020-03-24 2020-03-24 Outpatient Rutledge_L MM[facility] MMG [id number] [place] 02:28:00 02:28:00 1118 [facility] 2019-12-23 2019-12-23 Outpatient Windy [facility] [place] [id number] [place] 04:23:00 04:23:00 0818 Medical Group 2019-08-14 2019-08-14 Outpatient sebastian_k [facility] MMG [id number] [place] 09:51:00 09:51:00 0409 Medical Group 2019-01-22 2019-01-22 Sherly MM [place] - [id number] [facility] 00:00:00 00:00:00 Magda Soto Medicrowena cornelius MD: [address] [place] [id number] , Ph. [phone] 2019-01-15 2019-01-15 [facility] [place] - [id number] [facility] 00:00:00 00:00:00 Magda Soto MD: [address] [place] [address] , Ph. [phone] Results Test Description Test Time Test Comments [...] sequencing (reflex to HPV-16 risk assessment status)) [facility] [[facility] in Unspecified specimen by Probe and target amplification [id number] 00:00:00 Test Item Value Reference Range Interpretation Comments HPV type-detect 3.0 by next gen not detected sequencing (reflex to HPV-16 risk assessment status) (test code = HPV type-detect 3.0 by next gen sequencing (reflex to HPV-16 risk assessment status)) [facility] HPV if [id number] 00:00:00 Test Item Value Reference Range Interpretation Comments liquid Pap test with reflex to HPV abnormal A type-detect 3.0 if ASCUS or greater (test code = liquid Pap test with reflex to HPV type-detect 3.0 if ASCUS or greater) [facility] HPV if [id number] 00:00:00 Test Item Value Reference Range Interpretation Comments liquid Pap test with reflex to HPV abnormal A type-detect 3.0 if ASCUS or greater (test code = liquid Pap test with reflex to HPV type-detect 3.0 if ASCUS or greater) [facility]
[2022-12-18 03:18] LABS: Absolute Lymphocytes (CBC) 3.2 K/uL (0.7-4.9); Hematocrit 42.1 % (36.0-45.0); MCV 85.6 fL (80-100); MPV 9.3 fL (7.6-11.3); Platelets 280 thou/uL (152-406); RBC Red Blood Cell Count 4.92 M/uL (3.86-4.86)
[2022-12-18 03:22] LABS: Specific Gravity 1.013 (1.005-1.030); Urine Bilirubin NEGATIVE (Negative); Urine Blood Negative (Negative); Urine Clarity Clear (Clear); Urine Color Light-Yellow (Yellow); Urine Glucose NEGATIVE (Negative); Urine Protein NEGATIVE (Negative); Urine Urobilinogen Normal (Normal); Urine pH 5.5 (5.0-7.0)
[2022-12-18 03:33] LABS: Bilirubin Direct 0.1 mg/dL (0-0.2); Bilirubin Indirect, Calculated 0.4 mg/dL (0.2-0.8); Bilirubin Total 0.5 mg/dL (0.2-1.0); Potassium 3.6 mEq/L (3.5-5.1); Protein, Total 7.9 g/dL (6.4-8.2); Thyroid Stimulating Hormone 2.67 uIU/mL (0.358-3.740); Troponin High Sensitivity 4.3 pg/mL (<58.9)
[2022-12-18 03:38] LABS: Barbiturates NEGATIVE (NEGATIVE); Benzodiazepines NEGATIVE (NEGATIVE); Cocaine NEGATIVE (NEGATIVE); METHAMPHETAM NEGATIVE (NEGATIVE); Methadone NEGATIVE (NEGATIVE); Opiates NEGATIVE (NEGATIVE); Phencyclidine NEGATIVE (NEGATIVE); THC Cannibis NEGATIVE (NEGATIVE)
[2022-12-18 03:41] LABS: Specific Gravity 1.013 (1.005-1.030)
--- NOTE | 2022-12-18 03:47 | ER ---
Nurse's Notes [facility] Name: Tawanna Charles Age: 32 yrs Sex: Female : 1990 Arrival Date: 12/18/2022 Time: 01:16 Bed 16 [facility] MD: Diagnosis: Orthostatic Hypertension Presentation: 12/18 01:51 Chief complaint: Patient states: my head feels wrong. im dizzy and jerky. this has been lg3 hapenning since i had covid in 2021. Coronavirus screen: Client denies travel out of the [place] in the last 14 days. At this time, the client does not indicate any symptoms associated with coronavirus-19. Ebola Screen: No symptoms or risks identified at this time. Initial Sepsis Screen: Does the patient meet any 2 criteria? No. Patient's initial sepsis screen is negative. Does the patient have a suspected source of infection? No. Patient's initial sepsis screen is negative. Risk Assessment: Do you want to hurt yourself or someone else? Patient reports no desire to harm self or others. Onset of symptoms is unknown. 01:51 Method Of Arrival: Ambulatory lg3 01:51 Acuity: XU 3 lg3 Triage Assessment: 01:53 General: Appears in no apparent distress. comfortable, Behavior is calm, cooperative. lg3 Pain: Denies pain. EENT: No deficits noted. No signs and/or symptoms were reported regarding the EENT system. Neuro: No deficits noted. Jordan Agitation-Sedation Scale (RASS): 0 - Alert and Calm Level of Consciousness is awake, alert, obeys commands, Oriented to person, place, time, situation, Reports dizziness. Cardiovascular: No deficits noted. Denies chest pain, shortness of breath, Capillary refill < 3 seconds Clubbing of nail beds is absent JVD is absent Patient's skin is warm and dry. Respiratory: No deficits noted. Airway is patent Respiratory effort is even, unlabored, Respiratory pattern is regular, symmetrical, Breath sounds are clear bilaterally. GI: No deficits noted. No signs and/or symptoms were reported involving the gastrointestinal system. Abdomen is round non-distended, obese. : No deficits noted. No signs and/or symptoms were reported regarding the genitourinary system. Derm: No deficits noted. No signs and/or symptoms reported regarding the dermatologic system. Skin is intact, is healthy with good turgor, Skin is dry, Skin is normal, Skin temperature is warm. Musculoskeletal: No deficits noted. Circulation, motion, and sensation intact. Range of motion: intact in all extremities, Reports generalized weakness. ALLERGIST/MD: 01:53 LMP N/A - Hysterectomy lg3 Historical: - Allergies: 01:53 PENICILLINS; lg3 - Home Meds: :53 levothyroxine 50 mcg cap 1 cap once daily [Active]; Lisinopril Oral [Active]; lg3 - PMHx: :53 Hypothyroidism; PCOS; HTN; lg3 - PSHx: :53 Total abdominal hysterectomy; uterine ablasian; lg3 - Immunization history:: Adult Immunizations up to date, Client reports having NOT received the Covid vaccine. - Social history:: Smoking status: Patient denies any tobacco usage or history of. Patient/guardian denies using alcohol, street drugs. Screenin:57 [facility] ED Fall Risk Assessment (Adult) History of falling in the last 3 months, lg3 including since admission No falls in past 3 months (0 pts). Abuse screen: Denies threats or abuse. Denies injuries from another. Nutritional screening: No deficits noted. Tuberculosis screening: No symptoms or risk factors identified. Assessment: 01:57 General: see triage assessment . lg3 02:44 Reassessment: Patient appears in no apparent distress at this time. No changes from lg3 previously documented assessment. Patient and/or family updated on plan of care and expected duration. Pain level reassessed. Patient is alert, oriented x 3, equal unlabored respirations, skin warm/dry/pink. 03:57 Reassessment: Patient appears in no apparent distress at this time. No changes from lg3 previously documented assessment. Patient and/or family updated on plan of care and expected duration. Pain level reassessed. Patient is alert, oriented x 3, equal unlabored respirations, skin warm/dry/pink. Patient denies pain at this time. Patient states symptoms have improved. Vital Signs: 01:51 BP 149 / 107; Pulse 92; Resp 16 S; Temp 98.8(O); Pulse Ox 100% on R/A; Weight 108.86 kg lg3 (R); Height 5 ft. 7 in. (R); Pain 0/10; 02:43 BP 144 / 106; Pulse 84; Resp 20 S; Pulse Ox 100% on R/A; lg3 03:13 BP 127 / 79 Supine; Pulse 71; lg3 03:13 BP 147 / 98 Sitting; Pulse 78; lg3 03:13 BP 160 / 115 Standing; Pulse 81; lg3 01:51 Body Mass Index 37.59 (108.86 kg, 170.18 cm) lg3 01:51 Pain Scale: Adult lg3 ED Course: 01:17 Patient arrived in ED. ag3 01:43 Jenna Boateng PA-C is PHCP. sb4 01:43 Demario Cochran MD is Attending Physician. sb4 01:51 Liliane Chisholm, EDWIN is Primary Nurse. lg3 01:53 Triage completed. lg3 01:53 Arm band placed on right wrist. lg3 01:57 Patient has correct armband on for positive identification. Placed in gown. Bed in low lg3 position. Call light in reach. Side rails up X 1. Client placed on continuous cardiac and pulse oximetry monitoring. NIBP monitoring applied. rubber turner on. Door closed. Noise minimized. Warm blanket given. Family accompanied patient. 01:57 Patient maintains SpO2 saturation greater than 95% on room air. lg3 02:23 CT Head Brain wo Cont In Process Unspecified. EDMS 02:42 Test, Urine Sent. lg3 02:42 UDS Sent. lg3 02:42 Urinalysis w/ reflexes Sent. lg3 02:53 Inserted saline lock: 20 gauge in left antecubital area, using aseptic technique. Blood oe collected. 02:54 Hepatic Function Sent. oe 02:54 CBC with Diff Sent. oe 02:54 Basic Metabolic Panel Sent. oe 02:54 Magnesium Sent. oe 02:54 Troponin High Sensitivity Sent. oe 03:03 TSH Sent. lg3 03:46 Roddy Fry MD is Referral Physician. sb4 03:57 No provider procedures requiring assistance completed. IV discontinued, intact, lg3 bleeding controlled, No redness/swelling at site. Pressure dressing applied. Administered Medications: No medications were administered Medication: 03:57 VIS not applicable for this client. lg3 Outcome: 03:46 Discharge ordered by . sb4 03:57 Discharged to home ambulatory. lg3 03:57 Condition: stable 03:57 Discharge instructions given to patient, Instructed on discharge instructions, follow up and referral plans. Demonstrated understanding of instructions, follow-up care. 03:57 Patient left the ED. lg3 Signatures: Dispatcher [employer] EDMS Perez Da Silva Alice ag3 Liliane Chisholm, RN RN lg3 Jenna Boateng PA-C PAFarooq sb4 Corrections: (The following items were deleted from the chart) 02:43 01:51 BP 159 / 88; Pulse 73bpm; Resp 16bpm; Spontaneous; Pulse Ox 100% RA; Temp 98.8F lg3 Oral; 108.86 kg Reported; Height 5 ft. 7 in. Reported; BMI: 37.5; Pain 0/10, Adult; lg3
--- NOTE | 2022-12-18 03:47 | EDPHYS ---
Physician Documentation [facility] Name: Tawanna Charles Age: 32 yrs Sex: Female : 1990 Arrival Date: 12/18/2022 Time: 01:16 Bed 16 Private MD: ED Physician Demario Cochran HPI: 12/18 02:38 This 32 yrs old Female presents to ER via Ambulatory with complaints of Dizziness. sb4 02:39 Onset: The symptoms/episode began/occurred 1 year(s) ago. The patient has been recently sb4 seen by a physician: the patient's primary care provider. 03:03 patient with history of hypothyroidism, PCOS, hypertension, and long covid. she states sb4 that since she had covid in 2021, she has had a lot of issues with brain fog. she has these episodes where she feels like she cannot think clearly, has the sensation of falling, cannot find her words. she came in this evening because she stated that this episode was lasting significantly longer than they usually do. 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 - Social history:: Smoking status: Patient denies any tobacco usage or history of. Patient/guardian denies using alcohol, street drugs. ROS: 02:39 All other systems are negative. sb4 02:39 Constitutional: Negative for fever, chills, and weight loss, Eyes: Negative for injury, sb4 pain, redness, and discharge, ENT: Negative for injury, pain, and discharge, Cardiovascular: Negative for chest pain, palpitations, and edema, Respiratory: Negative for shortness of breath, cough, wheezing, and pleuritic chest pain, Abdomen/GI: Negative for abdominal pain, nausea, vomiting, diarrhea, and constipation, MS/Extremity: Negative for injury and deformity, Skin: Negative for injury, rash, and discoloration. 02:39 Neuro: Positive for dizziness, Negative for altered mental status, headache, loss of consciousness, numbness, syncope, weakness. Exam: 02:39 Constitutional: This is a well developed, well nourished patient who is awake, alert, sb4 and in no acute distress. Head/Face: Normocephalic, atraumatic. Eyes: Extra-ocular motions intact. Periorbital areas with no swelling, redness, or edema. ENT: Mucous membranes moist. Cardiovascular: Regular rate and rhythm with a normal S1 and S2. Respiratory: Lungs have equal breath sounds bilaterally, clear to auscultation and percussion. No rales, rhonchi or wheezes noted. No increased work of breathing, no retractions or nasal flaring. Abdomen/GI: Soft, non-tender, no distension. Skin: Warm, dry with normal turgor. Normal color with no rashes, no lesions, and no evidence of cellulitis. MS/ Extremity: Pulses equal, no cyanosis. Neurovascular intact. Full, normal range of motion. Neuro: Awake and alert, GCS 15, oriented to person, place, time, and situation. Cranial nerves II-XII grossly intact. Motor strength 5/5 in all extremities. Sensory grossly intact. Cerebellar exam normal. Normal gait. Vital Signs: 01:51 BP 149 / 107; Pulse 92; Resp 16 S; Temp 98.8(O); Pulse Ox 100% on R/A; Weight 108.86 kg lg3 (R); Height 5 ft. 7 in. (R); Pain 0/10; 02:43 BP 144 / 106; Pulse 84; Resp 20 S; Pulse Ox 100% on R/A; lg3 03:13 BP 127 / 79 Supine; Pulse 71; lg3 03:13 BP 147 / 98 Sitting; Pulse 78; lg3 03:13 BP 160 / 115 Standing; Pulse 81; lg3 01:51 Body Mass Index 37.59 (108.86 kg, 170.18 cm) lg3 01:51 Pain Scale: Adult lg3 MDM: 01:43 Patient medically screened. sb4 02:39 Differential diagnosis: cardiac arrhythmia, CVA, head injury, hyperventilation, sb4 idiopathic dizziness, near-syncope, sepsis, syncope, TIA, vertigo, covid long hauler, anxiety, orthostatic hypotension. 03:39 Data reviewed: vital signs, nurses notes, lab test result(s), EKG, radiologic studies, sb4 CT scan, and as a result, I will discharge patient. Historians other than the Patient: Spouse/Significant Other: significant other. Care significantly affected by the following chronic conditions: Hypertension. Counseling: I had a detailed discussion with the patient and/or guardian regarding: the historical points, exam findings, and any diagnostic results supporting the discharge/admit diagnosis, the presence of at least one elevated blood pressure reading (>120/80) during this emergency department visit, lab results, radiology results, the need for outpatient follow up, a admissions gate attendant, to return to the emergency department if symptoms worsen or persist or if there are any questions or concerns that arise at home. 12/18 02:01 Order name: Basic Metabolic Panel; Complete Time: 03:36 sb4 12/18 02:01 Order name: CBC with Diff; Complete Time: 03:45 sb4 12/18 02:01 Order name: Hepatic Function; Complete Time: 03:36 sb4 12/18 02:01 Order name: Magnesium; Complete Time: 03:36 sb4 12/18 02:01 Order name: Test, Urine; Complete Time: 03:45 sb4 12/18 02:01 Order name: Troponin High Sensitivity; Complete Time: 03:36 sb4 12/18 02:01 Order name: UDS; Complete Time: 03:40 sb4 12/18 02:01 Order name: Urinalysis w/ reflexes; Complete Time: 03:23 sb4 12/18 02:01 Order name: TSH; Complete Time: 03:36 sb4 12/18 02:01 Order name: CT Head Brain wo Cont sb4 12/18 02:01 Order name: EKG; Complete Time: 02:01 sb4 12/18 02:01 Order name: Cardiac monitoring; Complete Time: 02:42 sb4 12/18 02:01 Order name: EKG - Nurse/Tech; Complete Time: 02:42 sb4 12/18 02:01 Order name: IV Saline Lock; Complete Time: 02:54 sb4 12/18 02:01 Order name: Labs collected and sent; Complete Time: 02:54 sb4 12/18 02:01 Order name: O2 Per Protocol; Complete Time: 02:42 sb4 12/18 02:01 Order name: O2 Sat Monitoring; Complete Time: 02:42 sb4 08 02:01 Order name: Orthostatics; Complete Time: 03:14 sb4 EC:50 Rate is 70 beats/min. Rhythm is regular, Normal Sinus Rhythm. NE interval is normal at sb4 192 msec. QRS interval is normal at 84 msec. QT interval is normal at [address] changes noted. Clinical impression: Normal ECG. Interpreted by me. Reviewed by me. Administered Medications: No medications were administered Disposition: 04:07 Co-signature as Attending Physician, Demario Cochran MD I reviewed the patient's care rt provided by the Advanced Practice Provider and agree with the diagnosis and treatment plan. Disposition Summary: 12/18/22 03:46 Discharge Ordered Location: Home sb4 Problem: an ongoing problem sb4 Symptoms: have improved sb4 Condition: Stable sb4 Diagnosis - Orthostatic Hypertension sb4 Followup: sb4 - With: - When: 2 - 3 days - Reason: Further diagnostic work-up, Recheck today's complaints, Re-evaluation by your physician Forms: - Medication Reconciliation Form sb4 - Thank You Letter sb4 - Antibiotic Education sb4 - Prescription Opioid Use sb4 - Patient Portal Instructions sb4 - Leadership Thank You Letter sb4 Signatures: Dispatcher [employer] EDLiliane Thompson RN RN lg3 Jenna Boateng PA-C PA-C sb4 Demario Cochran MD MD rt Corrections: (The following items were deleted from the chart) 02:41 02:39 Constitutional: Negative for fever, chills, and weight loss, Eyes: Negative for sb4 injury, pain, redness, and discharge, ENT: Negative for injury, pain, and discharge, Cardiovascular: Negative for chest pain, palpitations, and edema, Respiratory: Negative for shortness of breath, cough, wheezing, and pleuritic chest pain, Abdomen/GI: Negative for abdominal pain, nausea, vomiting, diarrhea, and constipation, MS/Extremity: Negative for injury and deformity, Skin: Negative for injury, rash, and discoloration, Neuro: Negative for headache, weakness, numbness, tingling, and seizure, Psych: Negative for depression, anxiety, suicide ideation, homicidal ideation, and hallucinations, sb4
[2022-12-18 04:20] VITALS: TEMP 98.8; O2SAT 100
[2022-12-18 04:22] VITALS: BP 147/98
--- NOTE | 2022-12-18 13:10 | EKG ---
Test Date: 2022-12-18 Test Time: 02:40:46 Supervisor Prepress: ALIYAH MEASUREMENT RESULTS: Intervals: Rate: 70 HI: 192 QRSD: 84 QT: 394 QTc: 425 [place]: P: 51 HI: 192 QRS: 38 T: 76 INTERPRETIVE STATEMENTS: Normal sinus rhythm Normal ECG No previous ECG available for comparison Electronically Signed On 12-18-22 13:09:23 CDT by Roddy Fry
--- NOTE | 2022-12-18 14:05 | RAD REPORT ---
EXAM DESCRIPTION: CT - Head Brain Wo Cont - 12/18/2022 6:54 am CLINICAL HISTORY: Dizziness COMPARISON: None. TECHNIQUE: Head/brain axial images acquired without contrast. Coronal and sagittal reformats created . Exam performed according to departmental dose-optimization program which includes automated exposur e control, adjustment of mA and/or kV according to patient size, and/or use of iterative reconstructi on technique. FINDINGS: No midline shift, mass effect, intracranial hemorrhage, or hydrocephalus. Brain parenchyma unremarkable. Partial Empty Sella (likely normal variant). Paranasal sinuses clear. Mastoid air cells clear. No skull fracture or significant skull lesion. IMPRESSION: Unremarkable CT head/brain without contrast. Electronically signed by: Demetris Schaefer MD 12/18/2022 2:35 AM CDT Due to temporary technical issues with the PACS/Fluency reporting system, reports are being signed by the in house radiologist without review as a courtesy to ensure prompt reporting. The interpreting r adiologist is fully responsible for the content of the report.
== END 2022-12-18 03:57 | disposition home or self-care (01) ==
LOC: ER 01:16
DX: I95.1 Orthostatic hypotension (principal); I10 Essential (primary) hypertension; E03.9 Hypothyroidism, unspecified; Z88.0 Allergy status to penicillin
CPT/HCPCS: 36415; 70450; 80048; 80076; 80307; 81003; 81025; 83735; 84443; 84484; 85025; 93005; 99285

== ENCOUNTER 2023-08-16 13:06 | Emergency (ER) | payer SELFPAY ==
--- OUTSIDE RECORDS SUMMARY | 2023-08-16 13:08 | XMS REPORT | Continuity of Care Document ---
Author Name Unknown Address [address] [place] [address] Giacomo. [address] [place] [id number] [facility] thconnect Address [address] [facility] [address]acomo[address] [place] [address] Care Team Providers Care Rock Duster Name Role Phone Tomek_T Attending Clinician Unavailable Manuela_Millicent Attending Clinician Unavailable Windy Attending Clinician Unavailable sebastian_k Attending Clinician Unavailable Tomek_T Admitting Clinician Unavailable Rutledge_L Admitting Clinician Unavailable Windy Admitting Clinician Unavailable sebastian_k Admitting Clinician Unavailable Payers Payer Name Policy Type Policy Number Effective Date Expirati on Date Source Problems Condition Name Condition Details Condition Category Status Onset Date Resolution Date Last Treatment Date Treating Clinician Comments Source Hypothyroi dism Hypothyroi dism Problem Active 01-15 00:00: 00 [facility] Polycystic ovaries Polycystic Ovaries Problem Active 01-15 00:00: 00 [facility] Allergies, Adverse Reactions, Alerts Allergy Name Allergy Type Status Severity Reaction(s) Onset Date Inactive Date Treating Clinician Comments Source PENICILL INS Allergy to substanc e [facility] Social History Smoking Status Start Date Stop Date Source Never Smoker [facility] Medications Ordered Medication Name Filled Medication Name Start Date Stop Date Current Medication? Ordering Clinician Indication Dosage Frequency Signature (SIG) Comments Components Source Euthyrox 50 mcg tablet TAKE 1 TABLET BY MOUTH ONCE DAILY Euthyrox 50 mcg tablet TAKE 1 TABLET BY MOUTH ONCE DAILY No Euthyrox 50 mcg tablet TAKE 1 TABLET BY MOUTH ONCE DAILY [facility] EluRyng 0.12 mg-0.015 mg/24 hr vaginal ring INSERT 1 VAGINAL RING EVERY MONTH BY VAGINAL ROUTE DIRECTED BY PRESCRIBER EluRyng 0.12 mg-0.015 mg/24 hr vaginal ring INSERT 1 VAGINAL RING EVERY MONTH BY VAGINAL ROUTE DIRECTED BY PRESCRIBER No EluRyng 0.12 mg-0.015 mg/24 hr vaginal ring INSERT 1 VAGINAL RING EVERY MONTH BY VAGINAL ROUTE DIRECTED BY PRESCRIBER [facility] levothyroxi ne 50 mcg tablet Take 1 tablet every day by oral route for 90 days. levothyroxi ne 50 mcg tablet Take 1 tablet every day by oral route for 90 days. No 1 Q1D levothyrox ine 50 mcg tablet Take 1 tablet every day by oral route for 90 days. [facility] lisinopril 10 mg tablet Take 1 tablet every day by oral route for 90 days. lisinopril 10 mg tablet Take 1 tablet every day by oral route for 90 days. No 1 Q1D lisinopril 10 mg tablet Take 1 tablet every day by oral route for 90 days. [facility] amlodipine 2.5 mg tablet Take 1 tablet every day by oral route for 90 days. amlodipine 2.5 mg tablet Take 1 tablet every day by oral route for 90 days. No 1 Q1D amlodipine 2.5 mg tablet Take 1 tablet every day by oral route for 90 days. [facility] EluRyng 0.12 mg-0.015 mg/24 hr vaginal ring INSERT 1 VAGINAL RING EVERY MONTH BY VAGINAL ROUTE DIRECTED BY PRESCRIBER EluRyng 0.12 mg-0.015 mg/24 hr vaginal ring INSERT 1 VAGINAL RING EVERY MONTH BY VAGINAL ROUTE DIRECTED BY PRESCRIBER No EluRyng 0.12 mg-0.015 mg/24 hr vaginal ring INSERT 1 VAGINAL RING EVERY MONTH BY VAGINAL ROUTE DIRECTED BY PRESCRIBER [facility] levothyroxi ne 50 mcg tablet TAKE 1 TABLET BY MOUTH ONCE DAILY FOR 90 DAYS levothyroxi ne 50 mcg tablet TAKE 1 TABLET BY MOUTH ONCE DAILY FOR 90 DAYS No levothyrox ine 50 mcg tablet TAKE 1 TABLET BY MOUTH ONCE DAILY FOR 90 DAYS [facility] lisinopril 10 mg tablet TAKE 1 TABLET BY MOUTH ONCE DAILY FOR 90 DAYS lisinopril 10 mg tablet TAKE 1 TABLET BY MOUTH ONCE DAILY FOR 90 DAYS No lisinopril 10 mg tablet TAKE 1 TABLET BY MOUTH ONCE DAILY FOR 90 DAYS [facility] Vital Signs Vital Name Observation Time Observation Value Comments S paulo BP Systolic 2022-12-19 00:00:00 145 mm[Hg] Wu galvan [facility] BP Diastolic 2022-12-19 00:00:00 86 mm[Hg] [facility] Height 2022-12-19 00:00:00 67 [in_i] [facility] Body Weight 2022-12-19 00:00:00 3833 [oz_av] [facility] BMI (Body Mass Index) 2022-12-19 00:00:00 37.5 kg/m2 [facility] BP Diastolic 2022-10-16 00:00:00 100 mm[Hg] [facility] BP Systolic 2022-10-16 00:00:00 169 mm[Hg] [facility] Body Weight 2022-10-16 00:00:00 3858 [oz_av] [facility] BP Diastolic 2020-11-05 00:00:00 94 mm[Hg] [facility] Height 2020-11-05 00:00:00 67 [in_i] [facility] BMI (Body Mass Index) 2020-11-05 00:00:00 36.3 kg/m2 [facility] BP Systolic 2020-11-05 00:00:00 147 mm[Hg] [facility] Body Weight 2020-11-05 00:00:00 232 [lb_av] [facility] BP Diastolic 2019-01-22 00:00:00 83 mm[Hg] [facility] Height 2019-01-22 00:00:00 67 [in_i] [facility] BMI (Body Mass Index) 2019-01-22 00:00:00 33.4 kg/m2 [facility] BP Systolic 2019-01-22 00:00:00 120 mm[Hg] [facility] Body Weight 2019-01-22 00:00:00 213 [lb_av] [facility] BP Diastolic 2019-01-15 00:00:00 91 mm[Hg] [facility] Height 2019-01-15 00:00:00 67 [in_i] [facility] BMI (Body Mass Index) 2019-01-15 00:00:00 33.5 kg/m2 [facility] BP Systolic 2019-01-15 00:00:00 149 mm[Hg] [facility] Body Weight 2019-01-15 00:00:00 214 [lb_av] [facility] Procedures Procedure Date / Time Performed Performing Clinicia n Source MAMMO, screening, bilateral 2019-01-15 00:00:00 [facility] Plan of Care Planned Activity Planned Date Details Comments Source Diagnostic Test Pending 2022-10-16 00:00:00 CMP, serum or plasma [code = CMP, serum or plasma] [facility] Diagnostic Test Pending 2022-10-16 00:00:00 TSH, serum, reflex free T4 [code = TSH, serum, reflex free T4] [facility] Encounters Start Date/Time End Date/Time Encounter Type Admission Type Attending [facility] Care Facility Care Department Encounter ID Source 2022-12-19 00:00:00 2022-12-19 00:00:00 Outpatient Tomek_T [facility] [id number] [facility] 2022-12-19 00:00:00 2022-12-19 00:00:00 Iglesia Merritt MD: [address], [address], [place] [address] , Ph. MMG [facility] [id number] [facility] 2022-10-16 00:00:00 2022-10-16 00:00:00 Outpatient Tomek_T MMG MMG [id number] [facility] 2022-10-16 00:00:00 2022-10-16 00:00:00 Iglesia Merritt MD: [address], [address], [place] [address] , Ph[address] MMG [facility] [id number] [facility] 2022-10-13 00:00:00 2022-10-13 00:00:00 Outpatient Tomek_T MMG MMG [id number] [facility] 2021-02-22 02:43:00 2021-02-22 02:43:00 Outpatient Rutledge_L MMG MMG [id number] [facility] 2020-11-26 10:34:00 2020-11-26 10:34:00 Outpatient Rutledge_L MMG MMG [id number] [facility] 2020-11-22 05:59:00 2020-11-22 05:59:00 Outpatient Rutledge_L MMG MMG [id number] [facility] 2020-11-05 12:44:00 2020-11-05 12:44:00 Outpatient Rutledge_L MMG MMG [id number] [facility] 2020-11-05 00:00:00 2020-11-05 00:00:00 Sherly Roy MD: [address] [place], [place] [id number] , Ph. [phone] [facility] [id number] [facility] 2020-03-30 11:03:00 2020-03-30 11:03:00 Outpatient Rutledge_L MM[facility] MMG [id number] [facility] 2020-03-24 02:28:00 2020-03-24 02:28:00 Outpatient Rutledge_L MMG MMG [id number] [facility] 2019-12-23 04:23:00 2019-12-23 04:23:00 Outpatient Windy [facility]G MMG [id number] [facility] 2019-08-14 09:51:00 2019-08-14 09:51:00 Outpatient sebastian_k MMG MMG [id number] [facility] 2019-01-22 00:00:00 2019-01-22 00:00:00 Sherly Roy MD: [address] [place] [id number] , Ph. [phone] MM[facility] [id number] [facility] 2019-01-15 00:00:00 2019-01-15 00:00:00 Sherly Roy MD: [address] [facility], [place] [address] , Ph. [phone] [facility] [place] [facility] [id number] [facility] Results Test Description Test Time Test Comments Results Result Co mments Source [facility] papilloma virus genotype [Identifier] in Unspecified specimen by Probe and target amplification [id number] 00:00:00 * Test Item Value Reference Range Interpretation Comme nts HPV type-detect 3.0 by next gen sequencing (reflex to HPV-16 risk assessment status) (test code = HPV type-detect 3.0 by next gen sequencing (reflex to HPV-16 risk assessment status)) not detected [facility] + reflex to HR HPV if [id number] 00:00:00* Test Item Value Reference Range Interpretation Comme nts liquid Pap test with reflex to HPV type-detect 3.0 if ASCUS or greater (test code = liquid Pap test with reflex to HPV type-detect 3.0 if ASCUS or greater) abnormal A [facility], [facility] + reflex to HR HPV if [id number] 00:00:00* Test Item Value Reference Range Interpretation Comme nts liquid Pap test with reflex to HPV type-detect 3.0 if ASCUS or greater (test code = liquid Pap test with reflex to HPV type-detect 3.0 if ASCUS or greater) abnormal A [facility]
[2023-08-16] MEDS ORDERED: ASPIRIN 81 MG CHEWABLE TABLET ONE (13:42)
[2023-08-16] MEDS ORDERED: NA CHLORIDE 0.9% 1,000 ML ONE ×2 (13:42→14:35)
[2023-08-16 13:57] LABS: Absolute Eosinophils 0.1 K/uL (0-0.5); Absolute Lymphocytes (CBC) 0.7 K/uL (0.7-4.9); Absolute Monocytes 0.5 K/uL (0.1-1.3); Basophils % 0.2 % (0-1.3); Eosinophils % 0.5 % (0-4.4); Hematocrit 42.1 % (36.0-45.0); Hemoglobin 14.2 g/dL (12.0-15.0); Lymphocytes % 6.1 % (15.3-44.8); MCH 29.2 pg (27.0-35.0); MCHC 33.8 g/dL (32.0-36.0); MCV 86.4 fL (80-100); MPV 8.9 fL (7.6-11.3); Monocytes % 4.3 % (3.3-12.3); Neutrophils % 88.9 % (41.7-73.7); Platelets 235 thou/uL (152-406); RBC Red Blood Cell Count 4.87 M/uL (3.86-4.86); Red Cell Distribution Width 13.4 % (12.1-15.2)
[2023-08-16 13:58] LABS: PT Prothrombin Time 12.1 SECONDS (9.5-12.5); Protime INR 1.1
--- NOTE | 2023-08-16 13:59 | RAD REPORT ---
EXAM DESCRIPTION: RAD - Chest Single View - 08/16/2023 1:53 pm CLINICAL HISTORY: CHEST PAIN Chest pain. COMPARISON: <Comparisons> FINDINGS: Portable technique limits examination quality. The lungs are grossly clear. The heart is normal in size. No displaced fractures. IMPRESSION: No acute intrathoracic process suspected.
[2023-08-16 14:13] LABS: ALT/SGPT 36 U/L (13-56); AST/SGOT 22 U/L (15-37); Albumin 3.9 g/dL (3.4-5.0); Alkaline Phosphatase 71 U/L (45-117); Anion Gap 10.5 mEq/L (5.0-15.0); BUN Blood Urea Nitrogen 13 mg/dL (7-18); Bicarbonate 23 mEq/L (21-32); Bilirubin Direct 0.2 mg/dL (0-0.2); Bilirubin Indirect, Calculated 0.6 mg/dL (0.2-0.8); Bilirubin Total 0.8 mg/dL (0.2-1.0); Glomerular Filtration Rate 81 ml/min (=/>90); Glucose Level 121 mg/dL (74-106); Magnesium 1.8 mg/dL (1.6-2.4); NT PRO-BNP 35 pg/mL (<125); Potassium 3.5 mEq/L (3.5-5.1); Protein, Total 7.9 g/dL (6.4-8.2); Sodium Level 137 mEq/L (136-145)
[2023-08-16 14:19] LABS: Troponin High Sensitivity < 3.0 pg/mL (<58.9)
--- NOTE | 2023-08-16 15:41 | ER ---
Nurse's Notes [facility] Name: Tawanna Charles Age: 32 yrs Sex: Female : 1990 Arrival Date: 08/16/2023 Time: 13:06 Bed 4 Private MD: Diagnosis: Tachycardia, unspecified Presentation: 08/15 13:15 Chief complaint: Patient states: Chest tightness, palpitations started last night. 1 ll1 episode of N/V, and some diarrhea. HR has been above 120 since yesterday. Coronavirus screen: Client denies travel out of the [place] in the last 14 days. At this time, the client does not indicate any symptoms associated with coronavirus-19. Ebola Screen: Patient denies travel to an Ebola-affected area in the 21 days before illness onset. Initial Sepsis Screen: Does the patient meet any 2 criteria? HR > 90 bpm. No. Patient's initial sepsis screen is negative. Does the patient have a suspected source of infection? No. Patient's initial sepsis screen is negative. Risk Assessment: Do you want to hurt yourself or someone else? Patient reports no desire to harm self or others. Onset of symptoms was August 15, 2023. 13:15 Method Of Arrival: Ambulatory ll1 13:15 Acuity: XU 2 ll1 Triage Assessment: 13:18 General: Appears uncomfortable, Behavior is calm, cooperative, appropriate for age. iw Pain: Complains of pain in chest. Cardiovascular: Reports chest pain, lightheadedness, nausea, shortness of breath. GI: Reports diarrhea, nausea, vomiting. Historical: - Allergies: 13:17 PENICILLINS; ll1 - PMHx: 13:17 HTN; Hypothyroidism; PCOS; ll1 - PSHx: 13:17 Total abdominal hysterectomy; uterine ablasian; ll1 - Immunization history:: Adult Immunizations up to date. - Infectious Disease History:: Denies. - Social history:: Smoking status: Patient denies any tobacco usage or history of. Screenin:42 [facility] ED Fall Risk Assessment (Adult) History of falling in the last 3 months, mb9 including since admission No falls in past 3 months (0 pts) Confusion or Disorientation No (0 pts) Intoxicated or Sedated No (0 pts) Impaired Gait No (0 pts) Mobility Assist Device Used No (0 pt) Altered Elimination No (0 pt) Score/Fall Risk Level 0 - 2 = Low Risk Oriented to surroundings, Maintained a safe environment, Educated pt \T\ family on fall prevention, incl call for assistance when getting out of bed. Abuse screen: Denies threats or abuse. Nutritional screening: No deficits noted. Tuberculosis screening: No symptoms or risk factors identified. Assessment: 13:42 General: Appears in no apparent distress. Behavior is calm, cooperative. Pain: mb9 Complains of pain in chest Pain radiates to jaw Quality of pain is described as pressure, throbbing, Pain began suddenly. Neuro: Jordan Agitation-Sedation Scale (RASS): 0 - Alert and Calm Level of Consciousness is awake, alert, obeys commands, Oriented to person, place, time, situation, Appropriate for age. Cardiovascular: Reports chest pain, palpitations, shortness of breath, Heart tones S1 S2 present Patient's skin is warm and dry. Rhythm is sinus tachycardia. Respiratory: Airway is patent Respiratory effort is even, unlabored, Respiratory pattern is regular, symmetrical, Breath sounds are clear bilaterally. GI: Abdomen is round non-distended, Bowel sounds present X 4 quads. : No signs and/or symptoms were reported regarding the genitourinary system. EENT: No signs and/or symptoms were reported regarding the EENT system. Derm: Skin is pink, warm \T\ dry. Musculoskeletal: Range of motion: intact in all extremities. 15:43 Reassessment: No changes from previously documented assessment. Patient and/or family mb9 updated on plan of care and expected duration. Pain level reassessed. Patient is alert, oriented x 3, equal unlabored respirations, skin warm/dry/pink. Vital Signs: 13:15 BP 192 / 114; Pulse 131; Resp 18; Temp 97.6; Pulse Ox 98% ; Weight 102.97 kg; Height 5 ll1 ft. 7 in. ; Pain 3/10; 13:41 BP 150 / 102; Pulse 122; Resp 18; Pulse Ox 100% on R/A; mb9 14:23 BP 146 / 96; Pulse 109; sb4 15:08 Pulse 106; Resp 18; Pulse Ox 100% on R/A; mb9 15:43 BP 145 / 103; Pulse 104; Resp 16; Pulse Ox 100% on R/A; mb9 13:15 Body Mass Index 35.55 (102.97 kg, 170.18 cm) ll1 13:15 Pain Scale: Adult ll1 ED Course: 13:08 Patient arrived in ED. mr 13:14 Jenna Boateng PA-C is PHCP. sb4 13:14 Sandeep Osuna MD is Attending Physician. sb4 13:17 Triage completed. ll1 13:17 Arm band placed on Patient placed in an exam room, on a stretcher. ll1 13:20 Makeda Viera, EDWIN is Primary Nurse. mb9 13:30 Client placed on continuous cardiac and pulse oximetry monitoring. NIBP monitoring jg11 applied. electronic device monitor on. Pulse ox on. 13:30 EKG done, by ED staff. [email or web address] 13:41 Placed in gown. Bed in low position. Call light in reach. Side rails up X 1. mb9 13:41 Basic Metabolic Panel Sent. mb9 13:41 CBC with Diff Sent. mb9 13:41 D-Dimer Sent. mb9 13:41 LFT's Sent. mb9 13:41 Magnesium Sent. mb9 13:41 NT PRO-BNP Sent. mb9 13:41 PT-INR Sent. mb9 13:41 Troponin HS Sent. mb9 13:41 No provider procedures requiring assistance completed. Inserted saline lock: 18 gauge mb9 in left hand, using aseptic technique. 13:43 Provided Education on: press call light if needing anything. mb9 13:55 XRAY Chest (1 view) In Process Unspecified. EDMS 15:40 Roddy Fry MD is Referral Physician. sb4 15:44 IV discontinued, intact, bleeding controlled, No redness/swelling at site. Pressure mb9 dressing applied. Administered Medications: 13:44 Drug: NS 0.9% IV 1000 ml IV at 1 bolus Per protocol; 1000 mL bolus Route: IV; Rate: 1 mb9 bolus; Site: left hand; 15:44 Follow up: Response: No adverse reaction; IV Status: Completed infusion mb9 13:45 Drug: Aspirin PO Chewable Tablet 324 mg PO once; 81 mg tablets x 4 Route: PO; mb9 14:41 Drug: NS 0.9% IV 1000 ml IV at 1 bolus Per protocol; 1000 mL bolus Route: IV; Rate: 1 mb9 bolus; Site: left hand; 15:44 Follow up: Response: No adverse reaction; IV Status: Completed infusion mb9 Medication: 13:42 VIS not applicable for this client. mb9 Outcome: 15:40 Discharge ordered by . [email or web address] 15:44 Discharged to home ambulatory, mb9 15:44 Condition: stable 15:44 Discharge instructions given to patient, Instructed on discharge instructions, follow up and referral plans. Demonstrated understanding of instructions, follow-up care, 15:45 Patient left the ED. mb9 Signatures: Dispatcher [employer] EDNE Makeda Holder, Yuriy Reg mr Malini Arguelles, RN RN Annette Giraldo RN RN ll1 Jenna Boateng, PA-C PA-C Makeda Lua RN RN mb9 Kofi Pearson [email or web address]
--- NOTE | 2023-08-16 15:41 | EDPHYS ---
Physician Documentation [facility] Name: Tawanna Charles Age: 32 yrs Sex: Female : 1990 Arrival Date: 08/16/2023 Time: 13:06 Bed 4 Private MD: ED Physician Sandeep Osuna HPI: 08/15 13:41 This 32 yrs old Female presents to ER via Ambulatory with complaints of Chest sb4 Tightness, Nausea/Vomiting/Diarrhea. 13:41 Patient states that last night she started experiencing heart palpitations. She states sb4 that ever since, her Apple Watch has told her that her heart rate has been 118 and above. She states she feels palpitations intermittently but also feels some tightness in her chest as well as pain in her left jaw. She states it feels like it is difficult to take a deep breath but does not feel short of breath. She states that she vomited last night, has not vomited since. Has had a few episodes of diarrhea as well. Denies any excessive caffeine intake, drugs, or alcohol. Does have hypothyroidism, on levothyroxine, is not sure when her thyroid was last checked. Historical: - Allergies: 13:17 PENICILLINS; ll1 - PMHx: 13:17 HTN; Hypothyroidism; PCOS; ll1 - PSHx: 13:17 Total abdominal hysterectomy; uterine ablasian; ll1 - Immunization history:: Adult Immunizations up to date. - Infectious Disease History:: Denies. - Social history:: Smoking status: Patient denies any tobacco usage or history of. ROS: 13:41 Constitutional: Negative for fever, chills, and weight loss, sb4 13:41 Cardiovascular: Positive for chest pain, palpitations, 13:41 Respiratory: Positive for cough, 13:41 Abdomen/GI: Positive for nausea, vomiting, and diarrhea, 13:41 All other systems are negative, Exam: 13:41 Constitutional: This is a well developed, well nourished patient who is awake, alert, sb4 and in no acute distress. Head/Face: Normocephalic, atraumatic. Eyes: Extra-ocular motions intact. Periorbital areas with no swelling, redness, or edema. ENT: Mucous membranes moist. Respiratory: Lungs have equal breath sounds bilaterally, clear to auscultation and percussion. No rales, rhonchi or wheezes noted. No increased work of breathing, no retractions or nasal flaring. Abdomen/GI: Soft, non-tender, no distension. Skin: Warm, dry with normal turgor. Normal color with no rashes, no lesions, and no evidence of cellulitis. MS/ Extremity: Pulses equal, no cyanosis. Neurovascular intact. Full, normal range of motion. Neuro: Awake and alert, GCS 15, oriented to person, place, time, and situation. Motor strength 5/5 in all extremities. Sensory grossly intact. 13:41 Cardiovascular: Rate: tachycardic, Rhythm: regular, Vital Signs: 13:15 BP 192 / 114; Pulse 131; Resp 18; Temp 97.6; Pulse Ox 98% ; Weight 102.97 kg; Height 5 ll1 ft. 7 in. ; Pain 3/10; 13:41 BP 150 / 102; Pulse 122; Resp 18; Pulse Ox 100% on R/A; mb9 14:23 BP 146 / 96; Pulse 109; sb4 15:08 Pulse 106; Resp 18; Pulse Ox 100% on R/A; mb9 15:43 BP 145 / 103; Pulse 104; Resp 16; Pulse Ox 100% on R/A; mb9 13:15 Body Mass Index 35.55 (102.97 kg, 170.18 cm) ll1 13:15 Pain Scale: Adult ll1 MDM: 13:19 Patient medically screened. sb4 13:46 Differential diagnosis: Cardiac arrhythmia, hyperthyroidism, hypothyroidism, pulmonary sb4 embolism, ACS, dehydration, anxiety. 14:36 Scoring Tools HEART Score: History: ECG: Age: Risk Factors: 1 or 2 risk factors (1), sb4 Troponin: Total Score = 1. 15:40 Data reviewed: vital signs, nurses notes, lab test result(s), EKG, radiologic studies, sb4 and as a result, I will discharge patient. Counseling: I had a detailed discussion with the patient and/or guardian regarding the historical points, exam findings, and any diagnostic results supporting the discharge/admit diagnosis, lab results, radiology results, the need for outpatient follow up, a stage builder, to return to the emergency department if symptoms worsen or persist or if there are any questions or concerns that arise at home. 08/15 13:25 Order name: Basic Metabolic Panel; Complete Time: 14:20 sb4 08/15 13:25 Order name: CBC with Diff 4 08/15 13:25 Order name: D-Dimer; Complete Time: 13:59 sb4 08/15 13:25 Order name: LFT's; Complete Time: 14:20 4 08/15 13:25 Order name: Magnesium; Complete Time: 14:20 sb4 08/15 13:25 Order name: NT PRO-BNP; Complete Time: 14:20 sb4 08/15 13:25 Order name: PT-INR; Complete Time: 13:59 4 08/15 13:25 Order name: Troponin HS; Complete Time: 14:20 sb4 08/15 13:25 Order name: TSH; Complete Time: 14:20 sb4 08/15 13:25 Order name: XRAY Chest (1 view); Complete Time: 13:59 4 08/15 13:25 Order name: Cardiac monitoring; Complete Time: 13:41 sb4 08/15 13:25 Order name: EKG - Nurse/Tech; Complete Time: 13:41 sb4 08/15 13:25 Order name: IV Saline Lock; Complete Time: 13:41 sb4 08/15 13:25 Order name: Labs collected and sent; Complete Time: 13:41 sb4 08/15 13:25 Order name: O2 Per Protocol; Complete Time: 13:41 sb4 08/15 13:25 Order name: O2 Sat Monitoring; Complete Time: 13:41 sb4 EC:32 Rate is 129 beats/min. Rhythm is regular, Sinus tachycardia. NC interval is normal at sb4 164 msec. QRS interval is normal at 82 msec. QT interval is normal at 296 msec. No Q waves. T waves are Normal. No ST changes noted. Clinical impression: Sinus tachycardia and No evidence of ischemia. Interpreted by me. Reviewed by me. Administered Medications: 13:44 Drug: NS 0.9% IV 1000 ml IV at 1 bolus Per protocol; 1000 mL bolus Route: IV; Rate: 1 mb9 bolus; Site: left hand; 15:44 Follow up: Response: No adverse reaction; IV Status: Completed infusion mb9 13:45 Drug: Aspirin PO Chewable Tablet 324 mg PO once; 81 mg tablets x 4 Route: PO; mb9 14:41 Drug: NS 0.9% IV 1000 ml IV at 1 bolus Per protocol; 1000 mL bolus Route: IV; Rate: 1 mb9 bolus; Site: left hand; 15:44 Follow up: Response: No adverse reaction; IV Status: Completed infusion mb9 Disposition Summary: 08/16/23 15:40 Discharge Ordered Notes: Location: Home sb4 Problem: new sb4 Symptoms: have improved sb4 Condition: Stable sb4 Diagnosis - Tachycardia, unspecified sb4 Followup: sb4 - With: Roddy Fry MD - When: 1 week - Reason: Recheck today's complaints, Re-evaluation by your physician Discharge Instructions: - Discharge Summary Sheet sb4 - Supraventricular Tachycardia, Adult, [id number] sb4 - Sinus Tachycardia sb4 Forms: - Thank You Letter sb4 - Patient Portal Instructions sb4 - Leadership Thank You Letter sb4 Signatures: Dispatcher [employer] Annette Gomez, RN RN ll1 Jenna Boateng PA-C PAFarooq sb4 Makeda Viera RN RN mb9 Corrections: (The following items were deleted from the chart) 13:26 13:26 BASIC METABOLIC PANEL+C.LAB.BRZ ordered. EDMS EDMS 13:26 13:26 CBC+H.LAB.BRZ ordered. EDMS EDMS 13:26 13:26 D-DIMER+COAG.LAB.BRZ ordered. EDMS EDMS 13:26 13:26 HEPATIC FUNCTION+C.LAB.BRZ ordered. EDMS EDMS 13:26 13:26 MAGNESIUM+C.LAB.BRZ ordered. EDMS EDMS 13:26 13:26 PROBNP+C.LAB.BRZ ordered. EDMS EDMS 13:26 13:26 PROTIME (+INR)+COAG.LAB.BRZ ordered. EDMS EDMS 13:26 13:26 Troponin High Sensitivity+C.LAB.BRZ ordered. EDMS EDMS 13:26 13:26 THYROID STIMULAT HORMONE+C.LAB.BRZ ordered. EDMS EDMS
[2023-08-16 17:33] VITALS: BP 145/103; TEMP 97.6; O2SAT 100
[2023-08-16 20:47] LABS: Blood Morphology Comment NOT SEEN (NOT SEEN); Platelet Estimate ADEQ; White Blood Cell Scan OK (OK)
--- NOTE | 2023-08-17 13:39 | EKG ---
Test Date: 2023-08-16 Test Time: 13:25:22 Room Cooler Installer: BELKIS MEASUREMENT RESULTS: Intervals: Rate: 129 [place]: 164 QRSD: 82 QT: 296 QTc: 433 [place]: P: 61 [place]: 164 QRS: 55 T: 81 INTERPRETIVE STATEMENTS: Sinus tachycardia Otherwise normal ECG Compared to ECG 12/18/2022 02:40:46 Sinus rhythm no longer present Electronically Signed On 08-17-23 13:37:31 CDT by Roddy Fry
== END 2023-08-16 15:45 | disposition home or self-care (01) ==
LOC: ER 13:06
DX: R00.0 Tachycardia, unspecified (principal); R07.89 Other chest pain
CPT/HCPCS: 36415; 71045; 80048; 80076; 83735; 83880; 84443; 84484; 85025; 85379; 85610; 93005; 96360; 96361; 99285; J7030